=== PATIENT | male | born 1935 | race Caucasian/White ===

== ENCOUNTER 2016-10-28 09:18 | Emergency (ER) | payer MEDICARE, OTHER ==
--- NOTE | 2016-10-28 10:07 | ER Document Report ---
ED Fall - General Chief Complaint: Fall Stated Complaint: FALL/ HIP PAIN Mode of Arrival: Medic Information source: Patient, Emergency Med Personnel Cannot obtain history due to: Dementia Notes: MILDLY DEMENTED, POOR SHORT-TERM RECALL BUT FAIRLY GOOD HISTORIAN TRAVEL OUTSIDE OF THE [place] IN LAST 30 DAYS: No - HPI Occurred: This morning - Related data Allergies/Adverse Reactions: Penicillins Allergy (Verified 08/10/16 10:16) pseudoephedrine HCl [From Sudafed] Allergy (Verified 08/10/16 10:16) sulfadiazine [Sulfadiazine] Allergy (Verified 08/10/16 10:16) Past Medical History - General Information source: Transfer Record, Emergency Med Personnel Cannot obtain history due to: Dementia - Social History Smoking Status: Unknown if Ever Smoked Frequency of alcohol use: None Drug Abuse: None [facility] Family History: None Patient has suicidal ideation: No Patient has homicidal ideation: No - Past Medical History Cardiac Medical History: Reports: Hx Heart Attack - 2008, Hx Hypertension - medicated Pulmonary Medical History: Denies: Hx Asthma Neurological Medical History: Denies: Hx Cerebrovascular Accident, Hx Seizures Renal/ Medical History: Reports: Hx Benign Prostatic Hyperplasia GI Medical History: Denies: Hx Hepatitis, Hx Hiatal Hernia, Hx Ulcer Psychiatric Medical History: Reports: Hx Dementia Infectious Medical History: Denies: Hx Hepatitis Past Surgical History: Reports: Hx Cholecystectomy. Denies: Hx Open Heart Surgery, Hx Pacemaker - Immunizations Hx Diphtheria, Pertussis, Tetanus Vaccination: No Hx Pneumococcal Vaccination: 06/02/13 Review of Systems - Review of Systems Constitutional: No symptoms reported EENT: No symptoms reported Cardiovascular: No symptoms reported Respiratory: No symptoms reported Gastrointestinal: No symptoms reported Genitourinary: No symptoms reported Musculoskeletal: See HPI Skin: No symptoms reported Neurological/Psychological: No symptoms reported. denies: Headaches Physical Exam - Vital signs Vitals: Temp Pulse Resp BP Pulse Ox 98.1 F 47 L 16 128/52 H 99 10/28/16 09:30 10/28/16 09:30 10/28/16 09:30 10/28/16 09:30 10/28/16 09:30 Interpretation: Hypotensive, Bradycardic. No: Tachypneic, Febrile - General General appearance: Appears well, Alert In distress: None - HEENT Head: Normocephalic Eyes: Normal Conjunctiva: Normal Ears: Normal Nasal: Normal Mouth/Lips: Normal Mucous membranes: Normal Pharynx: Normal Neck: Normal, Supple - Respiratory Respiratory status: No respiratory distress Breath sounds: Normal - Cardiovascular Rhythm: Regular Heart sounds: Normal auscultation Murmur: No - Abdominal Inspection: Normal Distension: No distension Bowel sounds: Normal Tenderness: Tender - MILD, RLQ - Back Back: Normal - Extremities General upper extremity: Normal inspection General lower extremity: Normal inspection Hip: Tender - SLIGHT, OVER R. GR. TROCH., Other - NO PAIN WITH LOAD-BEARING. Notes: PELVIS STABLE TO A-P AND LATERAL STRESS. - Neurological Neuro grossly intact: Yes Cognition: Normal Orientation: Disoriented to time Motor strength normal: LUE, RUE, LLE, RLE Sensory: Normal - Psychological Associated symptoms: Confused - Skin Skin Temperature: Warm Skin Moisture: Dry Skin Color: Normal Skin Turgor: Elastic Skin irregularity: other - SEVERAL DOZEN CRUSTED LESIONS RESEMBLING NEURODERMATITIS, WIDESPREAD. Course - Vital Signs Vital signs: Temp Pulse Resp BP Pulse Ox 98.1 F 47 L 16 128/52 H 99 10/28/16 09:30 10/28/16 09:30 10/28/16 09:30 10/28/16 09:30 10/28/16 09:30 - Laboratory Result Diagrams: 10/28/16 11:05 10/28/16 11:05 Laboratory results interpreted by me: 10/28/16 10/28/16 11:05 11:05 RBC 3.40 L Hgb 9.4 L Hct 29.8 L MCHC 31.5 L RDW 16.3 H Eosinophils % 6.5 H Carbon Dioxide 33 H Albumin 3.0 L Discharge - Discharge Clinical Impression: Contusion of hip, right Qualifiers: Encounter type: initial encounter Qualified Code(s): S70.01XA - Contusion of right hip, initial encounter Dementia Qualifiers: Dementia type: Alzheimer's disease Alzheimer's disease onset: unspecified onset Dementia behavioral disturbance: without behavioral disturbance Qualified Code(s): G30.9 - Alzheimer's disease, unspecified; F02.80 - Dementia in other diseases classified elsewhere without behavioral disturbance Disposition: HOME, SELF-CARE
[2016-10-28 11:23] LABS: ABSOLUTE EOSINOPHILS # (AUTO) 0.3 10^3/uL (0.0-0.6); ABSOLUTE LYMPHOCYTES (AUTO) 0.9 10^3/uL (0.5-4.7); ABSOLUTE MONOCYTES (AUTO) 0.3 10^3/uL (0.1-1.4); ABSOLUTE NEUT (AUTO) 2.8 10^3/uL (1.7-8.2); BASOPHILS % (AUTO) 0.3 % (0-2); EOSINOPHILS % (AUTO) 6.5 % (0-6); HEMATOCRIT 29.8 % (37.9-51.0); HEMOGLOBIN 9.4 g/dL (13.5-17.0); HGB HCT DIFFERENCE -1.6; LYMPHOCYTES % (AUTO) 20.4 % (13-45); MEAN CORPUSCULAR HEMOGLOBIN 27.6 pg (27.0-33.4); MEAN CORPUSCULAR HGB CONC 31.5 g/dL (32.0-36.0); MEAN CORPUSCULAR VOLUME 88 fl (80-97); MONOCYTES % (AUTO) 7.2 % (3-13); RED CELL DISTRIBUTION WIDTH 16.3 % (11.5-14.0); SEGMENTED NEUTROPHILS % (AUTO) 65.6 % (42-78); WHITE BLOOD COUNT 4.3 10^3/uL (4.0-10.5)
[2016-10-28 11:46] LABS: ALANINE AMINOTRANSFERASE 26 U/L (21-72); ALKALINE PHOSPHATASE 81 U/L (38-126); ANION GAP 9 (5-19); ASPARTATE AMINO TRANSFERASE 28 U/L (17-59); BILIRUBIN,TOTAL 0.4 mg/dL (0.2-1.3); BLOOD UREA NITROGEN 18 mg/dL (7-20); CALCIUM 8.5 mg/dL (8.4-10.2); CARBON DIOXIDE 33 mmol/L (22-30); CHLORIDE 102 mmol/L (98-107); CREATININE RESULT 0.78 mg/dL (0.52-1.25); GLUCOSE 88 mg/dL (75-110); POTASSIUM 3.7 mmol/L (3.6-5.0); SODIUM 143.5 mmol/L (137-145); TOTAL PROTEIN 6.8 g/dL (6.3-8.2)
[2016-10-28 18:22] VITALS: BP 127/54
== END 2016-10-28 18:07 | disposition home or self-care (01) ==
LOC: ER 09:18
DX: S70.01XA Contusion of right hip, initial encounter (principal); G30.9 Alzheimer's disease, unspecified; Z90.49 Acquired absence of other specified parts of digestive tract; W19.XXXA Unspecified fall, initial encounter; I10 Essential (primary) hypertension; I25.2 Old myocardial infarction; Z88.0 Allergy status to penicillin; R10.31 Right lower quadrant pain
CPT/HCPCS: 36415; 80053; 85025; 99284

== ENCOUNTER 2016-11-24 10:51 | Emergency (ER) | payer MEDICARE, OTHER ==
[2016-11-24 11:55] VITALS: BP 127/59
[2016-11-24 12:00] LABS: ABSOLUTE EOSINOPHILS # (AUTO) 0.3 10^3/uL (0.0-0.6); ABSOLUTE LYMPHOCYTES (AUTO) 0.9 10^3/uL (0.5-4.7); ABSOLUTE MONOCYTES (AUTO) 0.3 10^3/uL (0.1-1.4); ABSOLUTE NEUT (AUTO) 2.1 10^3/uL (1.7-8.2); BASOPHILS % (AUTO) 0.4 % (0-2); EOSINOPHILS % (AUTO) 8.8 % (0-6); HEMATOCRIT 27.5 % (37.9-51.0); HEMOGLOBIN 8.9 g/dL (13.5-17.0); HGB HCT DIFFERENCE -0.8; LYMPHOCYTES % (AUTO) 25.9 % (13-45); MEAN CORPUSCULAR HGB CONC 32.3 g/dL (32.0-36.0); MEAN CORPUSCULAR VOLUME 87 fl (80-97); RED BLOOD COUNT 3.17 10^6/uL (4.35-5.55); RED CELL DISTRIBUTION WIDTH 16.4 % (11.5-14.0); SEGMENTED NEUTROPHILS % (AUTO) 56.9 % (42-78); WHITE BLOOD COUNT 3.6 10^3/uL (4.0-10.5)
[2016-11-24 13:09] LABS: ALANINE AMINOTRANSFERASE 32 U/L (21-72); ALBUMIN 2.9 g/dL (3.5-5.0); ALKALINE PHOSPHATASE 80 U/L (38-126); ANION GAP 8 (5-19); ASPARTATE AMINO TRANSFERASE 33 U/L (17-59); BILIRUBIN,TOTAL 0.4 mg/dL (0.2-1.3); BLOOD UREA NITROGEN 24 mg/dL (7-20); CALCIUM 8.8 mg/dL (8.4-10.2); CARBON DIOXIDE 31 mmol/L (22-30); CHLORIDE 107 mmol/L (98-107); CREATININE RESULT 0.92 mg/dL (0.52-1.25); GLUCOSE 92 mg/dL (75-110); LIPASE 398.4 U/L (23-300); POTASSIUM 4.3 mmol/L (3.6-5.0); SODIUM 145.8 mmol/L (137-145); TOTAL PROTEIN 6.9 g/dL (6.3-8.2)
--- NOTE | 2016-11-24 13:33 | ER Document Report ---
ED General - General Chief Complaint: Abdominal Pain Stated Complaint: ABDOMINAL PAIN TRAVEL OUTSIDE OF THE [place] IN LAST 30 DAYS: No - HPI Patient complains to provider of: abdominal pain Notes: Patient with a history of dementia coming in for evaluation of abdominal pain. 5 evaluate the patient patient states his abdominal pains of lower abdomen. Otherwise patient is unable to give any further history hernia further information. Patient does point to a right inguinal hernia when asked about location of pain. No other information is provided - Related Data Allergies/Adverse Reactions: Penicillins Allergy (Verified 08/10/16 10:16) pseudoephedrine HCl [From Sudafed] Allergy (Verified 08/10/16 10:16) sulfadiazine [Sulfadiazine] Allergy (Verified 08/10/16 10:16) Past Medical History - Social History Smoking Status: Unknown if Ever Smoked Family History: None - Past Medical History Cardiac Medical History: Reports: Hx Heart Attack - 2008, Hx Hypercholesterolemia, Hx Hypertension - medicated Pulmonary Medical History: Denies: Hx Asthma Neurological Medical History: Denies: Hx Cerebrovascular Accident, Hx Seizures Renal/ Medical History: Reports: Hx Benign Prostatic Hyperplasia. Denies: Hx Peritoneal Dialysis GI Medical History: Denies: Hx Hepatitis, Hx Hiatal Hernia, Hx Ulcer Psychiatric Medical History: Reports: Hx Dementia Infectious Medical History: Denies: Hx Hepatitis Past Surgical History: Reports: Hx Cholecystectomy. Denies: Hx Open Heart Surgery, Hx Pacemaker - Immunizations Hx Diphtheria, Pertussis, Tetanus Vaccination: No Hx Pneumococcal Vaccination: 06/02/13 Review of Systems - Review of Systems -: Yes ROS unobtainable due to patient's medical condition - Dementia Physical Exam - Vital signs Vitals: Temp Pulse Resp BP Pulse Ox 97.6 F 45 L 18 127/59 H 98 11/24/16 10:55 11/24/16 10:55 11/24/16 10:55 11/24/16 10:55 11/24/16 10:55 Interpretation: Normal - General General appearance: Appears well, Alert - HEENT Head: Normocephalic, Atraumatic Eyes: Normal Pupils: PERRL - Respiratory Respiratory status: No respiratory distress Chest status: Nontender Breath sounds: Normal Chest palpation: Normal - Cardiovascular Rhythm: Regular Heart sounds: Normal auscultation Murmur: No - Abdominal Inspection: Normal Distension: No distension Bowel sounds: Normal Tenderness: Nontender Organomegaly: No organomegaly Notes: Patient with a reducible right inguinal hernia that was reduced here in the ER - Back Back: Normal, Nontender - Extremities General upper extremity: Normal inspection, Nontender, Normal color, Normal ROM , Normal temperature General lower extremity: Normal inspection, Nontender, Normal color, Normal ROM , Normal temperature, Normal weight bearing. No: Tom's sign - Neurological Neuro grossly intact: Yes Cognition: Normal Orientation: AAOx4 [place] Coma Scale Eye Opening: Spontaneous [place] Coma Scale Verbal: Oriented [place] Coma Scale Motor: Obeys Commands [place] Coma Scale Total: 15 Speech: Normal Motor strength normal: LUE, RUE, LLE, RLE Sensory: Normal - Psychological Associated symptoms: Normal affect, Normal mood - Skin Skin Temperature: Warm Skin Moisture: Dry Skin Color: Normal Course - Re-evaluation Re-evalutation: 11/24/16 15:08 No signs of a long no white count and no signs of lactic acidosis. Patient will be discharged back to the senior living instructions follow-up with surgery for evaluation of the hernia - Vital Signs Vital signs: Temp Pulse Resp BP Pulse Ox 97.6 F 45 L 18 127/59 H 98 11/24/16 10:55 11/24/16 10:55 11/24/16 10:55 11/24/16 10:55 11/24/16 10:55 - Laboratory Result Diagrams: 11/24/16 11:07 11/24/16 12:25 Laboratory results interpreted by me: 11/24/16 11/24/16 11/24/16 11:07 12:25 12:25 WBC 3.6 L RBC 3.17 L Hgb 8.9 L Hct 27.5 L RDW 16.4 H Plt Count 146 L Eosinophils % 8.8 H Sodium 145.8 H Carbon Dioxide 31 H BUN 24 H Lactic Acid 0.6 L Albumin 2.9 L Lipase 398.4 H Discharge - Discharge Clinical Impression: Right inguinal hernia Condition: Good Disposition: HOME, SELF-CARE Instructions: Abdominal Pain ([facility]), Hernia ([facility]) Additional Instructions: Patient's lab work shows no signs of infection. The patient on examination does have a right inguinal hernia that is easily reducible. This is to be monitored at the hernia does pop out again apply gentle pressure to reduce it. If the hernia becomes unreducible patient will need to return to the ER for further evaluation. At this time no emergent criteria. I would recommend that the patient sees PCP and possibly follow-up with the surgeon provided. Please make sure the patient is on a stool softener to allow for easy bowel movements. Increased straining or lifting up heavy objects will exacerbate the hernia Prescriptions: Docusate Sodium [Colace 100 mg Capsule] 100 mg PO DAILY #30 capsule Referrals: ISH SONG PA-C [Primary Care Provider] - Follow up as needed JOE CASTRO MD [ACTIVE STAFF] - Follow up as needed
== END 2016-11-24 16:20 | disposition home or self-care (01) ==
LOC: ER 10:51
DX: K40.90 Unilateral inguinal hernia, without obstruction or gangrene, not specified as recurrent (principal); R10.9 Unspecified abdominal pain; E78.00 Pure hypercholesterolemia, unspecified; I10 Essential (primary) hypertension; Z88.0 Allergy status to penicillin; Z90.49 Acquired absence of other specified parts of digestive tract; I25.2 Old myocardial infarction
CPT/HCPCS: 36415; 80053; 83605; 83690; 85025; 99285

== ENCOUNTER 2017-01-30 10:20 | Emergency (ER) | payer MEDICARE, OTHER ==
--- NOTE | 2017-01-30 10:58 | ER Document Report ---
ED GI/ - General Mode of Arrival: Medic Information source: Patient, Emergency Med Personnel TRAVEL OUTSIDE OF THE [place] IN LAST 30 DAYS: No - HPI Patient complains to provider of: Abdominal pain Onset: Yesterday Associated symptoms: Other - See notes above <CRISTINA LOMBARDO - Last Filed: 01/30/17 19:58> <MARYAGMOE - Last Filed: 01/30/17 20:23> - General Chief Complaint: Abdominal Pain Stated Complaint: ABDOMINAL PAIN Notes: 82-year-old male with history of dementia was sent to the ED via EMS from [facility] where he complained of abdominal pain. According to the nurse the patient was found by [facility] staff doubled over in pain, however when EMS arrived, the patient was in no apparent distress. Upon examination, the patient states that he is unsure why he is here. He reports that "I don't know what the heck is going on." When asked where his abdominal pain is localized the patient points to his left thigh initially and then to his right thigh. A comprehensive history of present illness is unobtainable secondary to the patient's confusion which is likely due to his dementia. Patient's primary care provider is Dr. Santoyo. (CRISTINA LOMBARDO) - Related Data Allergies/Adverse Reactions: Penicillins Allergy (Verified 08/10/16 10:16) pseudoephedrine HCl [From Sudafed] Allergy (Verified 08/10/16 10:16) sulfadiazine [Sulfadiazine] Allergy (Verified 08/10/16 10:16) Past Medical History - General Information source: Patient - Social History Smoking Status: Former Smoker Chew tobacco use (# tins/day): Yes Frequency of alcohol use: Occasional Drug Abuse: None Family History: None - Past Medical History Cardiac Medical History: Reports: Hx Heart Attack - 2009, Hx Hypercholesterolemia, Hx Hypertension - medicated Pulmonary Medical History: Denies: Hx Asthma Neurological Medical History: Denies: Hx Cerebrovascular Accident, Hx Seizures Renal/ Medical History: Reports: Hx Benign Prostatic Hyperplasia. Denies: Hx Peritoneal Dialysis GI Medical History: Denies: Hx Hepatitis, Hx Hiatal Hernia, Hx Ulcer Psychiatric Medical History: Reports: Hx Dementia Infectious Medical History: Denies: Hx Hepatitis Past Surgical History: Reports: Hx Cholecystectomy. Denies: Hx Open Heart Surgery, Hx Pacemaker - Immunizations Hx Diphtheria, Pertussis, Tetanus Vaccination: No Hx Pneumococcal Vaccination: 06/02/13 <CRISTINA LOMBARDO - Last Filed: 01/30/17 19:58> Review of Systems - Review of Systems Gastrointestinal: See HPI, Abdominal pain <GRUPOCRISTINA - Last Filed: 01/30/17 19:58> <MOE FUENTES - Last Filed: 01/30/17 20:23> - Review of Systems Notes: Comprehensive ROS is unobtainable secondary to the patient's status. (CRISTINA LOMBARDO) Physical Exam <CRISTINA LOMBARDO - Last Filed: 01/30/17 19:58> <MOE FUENTES - Last Filed: 01/30/17 20:23> - Vital signs Vitals: Resp 18 01/30/17 10:22 Temp Pulse Resp BP Pulse Ox 98.7 F 80 20 132/68 H 96 01/30/17 19:09 01/30/17 19:09 01/30/17 19:09 01/30/17 19:09 01/30/17 19:09 Intake & Output 01/29/17 01/30/17 01/31/17 06:59 06:59 06:59 Weight 70.307 kg (CRISTINA LOMBARDO) - Notes Notes: GENERAL: Alert, interacts well. No acute distress. HEAD: Normocephalic, atraumatic. EYES: Pupils equal, round, and reactive to light. Extraocular movements intact. ENT: Oral mucosa moist, tongue midline. NECK: Full range of motion. Supple. Trachea midline. LUNGS: Clear to auscultation bilaterally, no wheezes, rales, or rhonchi. No respiratory distress. HEART: Regular rate and rhythm. No murmurs, gallops, or rubs. ABDOMEN: Soft. Non-distended. Bowel sounds present in all 4 quadrants. Diffuse tenderness to palpation which is worse to the right lower quadrant. Moderate guarding. EXTREMITIES: Moves all 4 extremities spontaneously. Trace pitting edema to the bilateral feet. Posterior tibialis and dorsalis pedis pulses 2/4 bilaterally. No cyanosis. Patient has a tracking bracelet to his right ankle. NEUROLOGICAL: Alert. Normal speech. Patient was confused on exam consistent with baseline dementia and thus a comprehensive HPI was unobtainable. PSYCH: Normal affect, normal mood. SKIN: Warm, dry, normal turgor. Multiple excoriations noted. Patient is scratching on exam. Thickening and cracking of the skin to the bilateral hands. (CRISTINA LOMBARDO) Course - Laboratory Result Diagrams: 01/30/17 11:02 01/30/17 11:02 - EKG Interpretation by Me EKG shows normal: Sinus rhythm. abnormal: ST-T Waves - No T-wave elevation or depression. Leads V1 through V5 show T wave inversion. These inversions are new in leads V3 through V5, but appeared unchanged in V1 through V2. Rate: Normal - 60 bpm Heart block present: 1st Degree - First degree AV block noted. When compared to previous EKG there are: Changes noted - New T-wave inversions in leads V3 through V5. <CRISTINA LOMBARDO - Last Filed: 01/30/17 19:58> - Laboratory Result Diagrams: 01/30/17 11:02 01/30/17 11:02 <MOE FUENTES - Last Filed: 01/30/17 20:23> - Re-evaluation Re-evalutation: 01/30/17 17:52 CBC shows low white count of 3.0, anemia with hemoglobin 9.7, platelets normal, coags normal, chemistries grossly unremarkable, urinalysis shows small blood, no signs of infection, CT scan of the abdomen pelvis shows possible bleeding near the aorta however this was repeated several hours later after discussion with the radiologist and there is no sign of change in the possible bleeding, this does not appear to represent any acute bleeding, patient has had no decrease in blood pressure and is in absolutely no pain whatsoever since arriving in the emergency department. At this time I do not know what the etiology of his pain is but it does not appear to be coming from an acute intra- abdominal process. He did have a very large bowel movement while here, this could possibly have accounted for the patient's pain at the custodial however I am not certain. At this time the patient appears stable and will be discharged back to the custodial. They are requested to follow up as an outpatient with primary care physician as well as to return for any returning pain. (MOE FUENTES) - Vital Signs Vital signs: Temp Pulse Resp BP Pulse Ox 98.0 F 63 16 130/50 H 97 01/30/17 20:13 01/30/17 20:13 01/30/17 20:13 01/30/17 20:13 01/30/17 20:13 - Laboratory Laboratory results interpreted by me: 01/30/17 01/30/17 01/30/17 11:02 11:02 11:15 WBC 3.0 L RBC 3.59 L Hgb 9.7 L Hct 30.3 L RDW 16.3 H Eosinophils % 7.8 H Sodium 145.9 H Carbon Dioxide 32 H Albumin 3.4 L Urine Blood SMALL H Discharge <CRISTINA LOMBARDO - Last Filed: 01/30/17 19:58> <MOE FUENTES - Last Filed: 01/30/17 20:23> - Discharge Clinical Impression: Abdominal pain of unknown etiology Dementia Qualifiers: Dementia type: unspecified type Dementia behavioral disturbance: without behavioral disturbance Qualified Code(s): F03.90 - Unspecified dementia without behavioral disturbance Condition: Stable Disposition: HOME-SNF (ED ONLY) Additional Instructions: Today we did not find any cause for the patient's abdominal pain. The patient had no abdominal pain in the emergency department either. Initial CAT scan showed possible bleeding from around the stent in his aorta however when we repeated the CAT scan there was no evidence that this is acute bleeding, no intervention needs to happen today. It is very important that you have him follow-up with his primary care physician as an outpatient within the next 3-5 days and that you have him return to the emergency department department immediately should his pain return. Referrals: ISH SONG PA-C [Primary Care Provider] - Follow up in 3-5 days Scribe Attestation: 01/30/17 20:22 I personally performed the services described in the documentation, reviewed and edited the documentation which was dictated to the scribe in my presence, and it accurately records my words and actions. (MOE FUENTES) Scribe Documentation - Scribe Written by Yunior:: Yunior Merrill, 01/30/2017 1349 acting as scribe for :: Carissa <CRISTINA LOMBARDO - Last Filed: 01/30/17 19:58>
[2017-01-30 11:19] LABS: ABSOLUTE EOSINOPHILS # (AUTO) 0.2 10^3/uL (0.0-0.6); ABSOLUTE LYMPHOCYTES (AUTO) 0.6 10^3/uL (0.5-4.7); ABSOLUTE MONOCYTES (AUTO) 0.2 10^3/uL (0.1-1.4); ABSOLUTE NEUT (AUTO) 1.9 10^3/uL (1.7-8.2); BASOPHILS % (AUTO) 0.3 % (0-2); EOSINOPHILS % (AUTO) 7.8 % (0-6); HEMATOCRIT 30.3 % (37.9-51.0); HEMOGLOBIN 9.7 g/dL (13.5-17.0); HGB HCT DIFFERENCE -1.2; LYMPHOCYTES % (AUTO) 21.3 % (13-45); MEAN CORPUSCULAR HEMOGLOBIN 27.1 pg (27.0-33.4); MEAN CORPUSCULAR HGB CONC 32.1 g/dL (32.0-36.0); MEAN CORPUSCULAR VOLUME 84 fl (80-97); MONOCYTES % (AUTO) 7.5 % (3-13); RED BLOOD COUNT 3.59 10^6/uL (4.35-5.55); RED CELL DISTRIBUTION WIDTH 16.3 % (11.5-14.0); SEGMENTED NEUTROPHILS % (AUTO) 63.1 % (42-78)
[2017-01-30 11:26] LABS: PROTHROMBIN TIME 13.7 SEC (11.4-15.4)
[2017-01-30 11:48] LABS: ALANINE AMINOTRANSFERASE 23 U/L (21-72); ALBUMIN 3.4 g/dL (3.5-5.0); ALKALINE PHOSPHATASE 91 U/L (38-126); ANION GAP 11 (5-19); ASPARTATE AMINO TRANSFERASE 23 U/L (17-59); BILIRUBIN,DIRECT 0.3 mg/dL (0.0-0.4); BILIRUBIN,TOTAL 0.6 mg/dL (0.2-1.3); BLOOD UREA NITROGEN 18 mg/dL (7-20); CARBON DIOXIDE 32 mmol/L (22-30); CHLORIDE 103 mmol/L (98-107); CREATININE RESULT 0.86 mg/dL (0.52-1.25); GLUCOSE 102 mg/dL (75-110); POTASSIUM 3.9 mmol/L (3.6-5.0); SODIUM 145.9 mmol/L (137-145); TOTAL PROTEIN 7.7 g/dL (6.3-8.2)
[2017-01-30 12:04] LABS: APPEARANCE,URINE CLEAR; BILIRUBIN,URINE NEGATIVE (NEGATIVE); GLUCOSE, URINE NEGATIVE (NEGATIVE); KETONES,URINE NEGATIVE (NEGATIVE); LEUKOCYTE ESTERASE,URINE NEGATIVE (NEGATIVE); NITRITE,URINE NEGATIVE (NEGATIVE); PROTEIN,URINE NEGATIVE (NEGATIVE); URINE SPECIFIC GRAVITY 1.015; UROBILINOGEN,URINE NEGATIVE mg/dL (<2.0)
--- NOTE | 2017-01-30 13:35 | EKG REPORT ---
SEVERITY:- ABNORMAL ECG - SINUS RHYTHM ABNORMAL T, CONSIDER ISCHEMIA, ANT-LAT LEADS : Confirmed by: Josafat Barbosa MD 30-Jan-2017 13:35:14
[2017-01-30 20:15] VITALS: BP 130/50
== END 2017-01-30 20:13 ==
LOC: ER 10:20
DX: R10.9 Unspecified abdominal pain (principal); R10.817 Generalized abdominal tenderness; F03.90 Unspecified dementia, unspecified severity, without behavioral disturbance, psychotic disturbance, mood disturbance, and anxiety; R60.0 Localized edema; D64.9 Anemia, unspecified; I44.0 Atrioventricular block, first degree; I25.2 Old myocardial infarction; I10 Essential (primary) hypertension; Z90.49 Acquired absence of other specified parts of digestive tract; Z88.0 Allergy status to penicillin; Z88.8 Allergy status to other drugs, medicaments and biological substances; Z72.0 Tobacco use
CPT/HCPCS: 36415; 51701; 74176; 74177; 80053; 81001; 85025; 85610; 87040; 93005; 93010; 99285

== ENCOUNTER 2017-02-16 18:28 | Emergency (ER) | payer MEDICARE, OTHER ==
--- NOTE | 2017-02-16 20:00 | ER Document Report ---
ED Hip Pain/Injury - General Chief Complaint: Hip Pain Stated Complaint: HIP PAIN Time Seen by Provider: 02/16/17 19:50 Notes: Patient is an 82-year-old male that [id number] for chief complaint of fall injury and pain to the right hip. No other injuries reported. When asked where he hurts patient states he hurts in his left hip and points to his left hip. He denies any other areas of pain. Patient is on Plavix. Patient has a DO NOT RESUSCITATE form with him in his chart. Patient is confused but this is reportedly his baseline per EMS. TRAVEL OUTSIDE OF THE [place] IN LAST 30 DAYS: No - Related Data Allergies/Adverse Reactions: Penicillins Allergy (Verified 08/10/16 10:16) pseudoephedrine HCl [From Sudafed] Allergy (Verified 08/10/16 10:16) sulfadiazine [Sulfadiazine] Allergy (Verified 08/10/16 10:16) Past Medical History - General Information source: Patient - Social History Smoking Status: Never Smoker Chew tobacco use (# tins/day): No Frequency of alcohol use: None Drug Abuse: None Lives with: Family Family History: None - Past Medical History Cardiac Medical History: Reports: Hx Heart Attack - 2008, Hx Hypercholesterolemia, Hx Hypertension - medicated Pulmonary Medical History: Denies: Hx Asthma Neurological Medical History: Denies: Hx Cerebrovascular Accident, Hx Seizures Renal/ Medical History: Reports: Hx Benign Prostatic Hyperplasia. Denies: Hx Peritoneal Dialysis GI Medical History: Denies: Hx Hepatitis, Hx Hiatal Hernia, Hx Ulcer Psychiatric Medical History: Reports: Hx Dementia Infectious Medical History: Denies: Hx Hepatitis Past Surgical History: Reports: Hx Cholecystectomy. Denies: Hx Open Heart Surgery, Hx Pacemaker - Immunizations Hx Diphtheria, Pertussis, Tetanus Vaccination: No Hx Pneumococcal Vaccination: 06/02/13 Review of Systems - Review of Systems Constitutional: No symptoms reported EENT: No symptoms reported Cardiovascular: No symptoms reported Respiratory: No symptoms reported Gastrointestinal: No symptoms reported Genitourinary: No symptoms reported Male Genitourinary: No symptoms reported Musculoskeletal: See HPI Skin: No symptoms reported Hematologic/Lymphatic: No symptoms reported Neurological/Psychological: No symptoms reported Physical Exam - Vital signs Vitals: Temp Pulse Resp BP Pulse Ox 98.2 F 109 H 20 134/77 H 99 02/16/17 18:42 05/18/17 18:42 02/16/17 18:42 02/16/17 18:42 02/16/17 18:42 Interpretation: Normal - General General appearance: Appears well, Alert In distress: None - patient appears calm, resting in the bed, responsive, smiles when engaging in conversation - HEENT Head: Normocephalic, Atraumatic Eyes: Normal Conjunctiva: Normal Extraocular movements intact: Yes Eyelashes: Normal Pupils: PERRL Mouth/Lips: Normal Mucous membranes: Normal Pharynx: Normal Neck: Normal - Respiratory Respiratory status: No respiratory distress Chest status: Nontender Breath sounds: Normal. No: Decreased air movement, Wheezing Chest palpation: Normal - Cardiovascular Rhythm: Regular. No: Tachycardia Heart sounds: Normal auscultation, S1 appreciated, S2 appreciated Murmur: No - Abdominal Inspection: Normal Distension: No distension Bowel sounds: Normal Tenderness: Nontender. No: Tender, Guarding Organomegaly: No organomegaly - Back Back: Normal, Nontender. No: Tender, Vertebra tenderness - Extremities General upper extremity: Normal inspection, Nontender, Normal color, Normal ROM , Normal temperature General lower extremity: Other - patient states he has pain with palpation over both hips, although no pain reaction noted, bilateral LE exam is unremarkable with no signs of injury, normal distal N/V exam - Neurological Neuro grossly intact: Yes Cognition: Normal Orientation: AAOx4 [place] Coma Scale Eye Opening: Spontaneous Abhishek Coma Scale Verbal: Oriented Abhishek Coma Scale Motor: Obeys Commands [place] Coma Scale Total: 15 Speech: Normal Motor strength normal: LUE, RUE, LLE, RLE Sensory: Normal - Psychological Associated symptoms: Normal affect, Normal mood - Skin Skin Temperature: Warm Skin Moisture: Dry Skin Color: Normal Course - Re-evaluation Re-evalutation: Imaging of the hips/pelvis with no acute abnormality. On reevaluation patient has no complaints. Efrain physical exam. No tachycardia on my exam, on reevaluation of vital signs tachycardia resolved. [facility] with primary care follow-up - Vital Signs Vital signs: Temp Pulse Resp BP Pulse Ox 98.2 F 56 L 18 142/69 H 98 02/16/17 18:42 02/16/17 22:59 02/16/17 22:59 02/16/17 22:59 02/16/17 22:59 Discharge - Discharge Clinical Impression: Fall Qualifiers: Encounter type: initial encounter Qualified Code(s): W19.XXXA - Unspecified fall, initial encounter Hip pain Qualifiers: Laterality: bilateral Qualified Code(s): M25.551 - Pain in right hip Condition: Stable Disposition: HOME, SELF-CARE Additional Instructions: Both hips imaged and no abnormalities noted. No other abnormalities seen on evaluation. Follow up with primary care. Return to the ED for any concerning symptoms.
[2017-02-16 23:00] VITALS: BP 142/69
== END 2017-02-17 | disposition home or self-care (01) ==
LOC: ER 18:28
DX: M25.551 Pain in right hip (principal); M25.552 Pain in left hip; W19.XXXA Unspecified fall, initial encounter; Y92.129 Unspecified place in nursing home as the place of occurrence of the external cause; I25.2 Old myocardial infarction; I10 Essential (primary) hypertension; Z66 Do not resuscitate; Z88.0 Allergy status to penicillin; Z88.8 Allergy status to other drugs, medicaments and biological substances; Z88.2 Allergy status to sulfonamides
CPT/HCPCS: 73522; 99284

== ENCOUNTER 2017-04-12 03:09 | Emergency (ER) | payer MEDICARE, OTHER ==
[2017-04-12] MEDS ORDERED: LIDOCAINE 0.5%/EPINEPHRINE INJ 50 ML VIAL INJ ONE (03:15)
--- NOTE | 2017-04-12 03:22 | ER Document Report ---
ED Fall - General Chief Complaint: Fall Stated Complaint: FALL/HEAD LACERATION Time Seen by Provider: 04/12/17 03:15 Notes: Patient is an 82-year-old male who comes emergency department from [facility] by EMS for chief complaint of fall, fall was unwitnessed , patient was found sitting on the floor with a laceration to his left posterior scalp and bleeding. Patient is on both Plavix and aspirin. Patient has dementia, patient reportedly at patient's baseline according to custodial staff before coming to the emergency department. No other complaints reported. TRAVEL OUTSIDE OF THE [place] IN LAST 30 DAYS: No - Related data Allergies/Adverse Reactions: Penicillins Allergy (Verified 08/10/16 10:16) pseudoephedrine HCl [From Sudafed] Allergy (Verified 08/10/16 10:16) sulfadiazine [Sulfadiazine] Allergy (Verified 08/10/16 10:16) Past Medical History - General Information source: Patient - Social History Smoking Status: Never Smoker Frequency of alcohol use: None Drug Abuse: None Lives with: [facility] Family History: None - Past Medical History Cardiac Medical History: Reports: Hx Heart Attack - 2008, Hx Hypercholesterolemia, Hx Hypertension - medicated Pulmonary Medical History: Denies: Hx Asthma Neurological Medical History: Denies: Hx Cerebrovascular Accident, Hx Seizures Renal/ Medical History: Reports: Hx Benign Prostatic Hyperplasia. Denies: Hx Peritoneal Dialysis GI Medical History: Denies: Hx Hepatitis, Hx Hiatal Hernia, Hx Ulcer Psychiatric Medical History: Reports: Hx Dementia Infectious Medical History: Denies: Hx Hepatitis Past Surgical History: Reports: Hx Cholecystectomy. Denies: Hx Open Heart Surgery, Hx Pacemaker - Immunizations Hx Diphtheria, Pertussis, Tetanus Vaccination: No Hx Pneumococcal Vaccination: 06/02/13 Review of Systems - Review of Systems Constitutional: No symptoms reported EENT: No symptoms reported Cardiovascular: No symptoms reported Respiratory: No symptoms reported Gastrointestinal: No symptoms reported Genitourinary: No symptoms reported Male Genitourinary: No symptoms reported Musculoskeletal: See HPI Skin: See HPI Hematologic/Lymphatic: No symptoms reported Neurological/Psychological: See HPI Physical Exam - Vital signs Vitals: Temp Pulse Resp BP Pulse Ox 98.0 F 46 L 18 125/58 L 100 04/12/17 03:33 04/12/17 03:33 04/12/17 03:33 04/12/17 03:33 04/12/17 03:33 Interpretation: Normal - General General appearance: Appears well In distress: None - HEENT Head: Normocephalic. No: Atraumatic - There is a 3 cm linear laceration over the left parieto-occipital scalp, currently bleeding, mild surrounding ecchymosis, otherwise no signs of trauma Eyes: Normal Pupils: PERRL - Respiratory Respiratory status: No respiratory distress Chest status: Nontender Breath sounds: Normal Chest palpation: Normal - Cardiovascular Rhythm: Regular, Bradycardia Heart sounds: Normal auscultation, S1 appreciated, S2 appreciated Murmur: No - Abdominal Inspection: Normal Distension: No distension Bowel sounds: Normal Tenderness: Nontender Organomegaly: No organomegaly - Back Back: Normal, Nontender - Extremities General upper extremity: Normal inspection, Nontender, Normal color, Normal ROM , Normal temperature General lower extremity: Normal inspection, Nontender, Normal color, Normal ROM , Normal temperature, Normal weight bearing. No: Tom's sign - Neurological Neuro grossly intact: Yes Cognition: Confused Orientation: Disoriented to time, Disoriented to events. 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 CAT scan of the head negative for any acute abnormalities. Wound repaired, head injury precautions given, patient will be discharged back to custodial facility Patient has bradycardia here, however review of records shows that this is baseline for patient - Vital Signs Vital signs: Temp Pulse Resp BP Pulse Ox 98.3 F 50 L 18 151/62 H 99 04/12/17 05:44 04/12/17 05:44 04/12/17 05:44 04/12/17 05:44 04/12/17 05:44 Procedures - Laceration/Wound Repair Left parieto-occipital Wound length (cm): 3 Wound's Depth, Shape: Linear Anesthetic type: 1% Lidocaine w/epi Volume Anesthetic (mLs): 6 Wound explored: Clean, No foreign body removed Wound Repaired With: Sutures Suture Size/Type: 4:0, Nylon Number of Sutures: 8 - running Layer Closure?: No Post-procedure wound care: Sterile dressing applied Post-procedure NV exam normal: Yes Complications: No Discharge - Discharge Clinical Impression: Scalp laceration Qualifiers: Encounter type: initial encounter Qualified Code(s): S01.01XA - Laceration without foreign body of scalp, initial encounter Fall Qualifiers: Encounter type: initial encounter Qualified Code(s): W19.XXXA - Unspecified fall, initial encounter Head injury Qualifiers: Encounter type: initial encounter Qualified Code(s): S09.90XA - Unspecified injury of head, initial encounter Condition: Stable Disposition: HOME, SELF-CARE Additional Instructions: Sutures need to come out in 5-7 days at a medical facility. Keep the sutures clean, clean with soap and water, dab dry. Please follow head injury precautions listed below. Emergency department for any concerning symptoms including signs of infection such as redness, discolored drainage, fever, etc. Head Injury Precautions At this point, there is no evidence that your head injury is serious. Observation is necessary, however. Take only clear liquids for the first few hours, unless told otherwise by the doctor. If no pain medication was prescribed, you may take acetaminophen according to the directions on the bottle. Do not take any medication that may alter your level of alertness (unless you've discussed it with the doctor first) . Limit activity for the first 24 hours. Bed rest is best. During the first 24 hours, check to see approximately every two to three hours that the patient is easily arousable, responds normally, and can perform common tasks such as walking without difficulty. Contact your doctor or go to the hospital if any of the following things occur: Persistent vomiting, difficulty in arousing the patient, worsening or continued headache, or failure to improve as expected. Head injuries can cause symptoms that persist for a few days or even a few weeks.
--- NOTE | 2017-04-12 04:04 | RADIOLOGY REPORT (SQ) ---
EXAM DESCRIPTION: CT HEAD WITHOUT COMPLETED DATE/TIME: 04/12/2017 3:41 am REASON FOR STUDY: head injury COMPARISON: CT head 07/25/2016, 06/04/2016. TECHNIQUE: Axial images acquired through the brain without intravenous contrast. Images reviewed wi th bone, brain and subdural windows. Images stored on PACS. All CT scanners at this facility use dose modulation, iterative reconstruction, and/or weight based d osing when appropriate to reduce radiation dose to as low as reasonably achievable (ALARA). [facility]: Dose Right [facility]: CareDose [facility]: Dose Right [facility]: Teradose 4D [facility]: Smart M[place]ridion RADIATION DOSE: Up-to-date CT equipment and radiation dose reduction techniques were employed. CTDIv ol: 55.2 mGy. DLP: 1084 mGy-cm.mGy. LIMITATIONS: None. FINDINGS: VENTRICLES: Prominent. CEREBRUM: No mass effect. No hemorrhage. No midline shift. Areas of low density in the white matte r most likely due to chronic micro-vascular ischemic change. No evidence for acute territorial infar ction. CEREBELLUM: No mass effect. No hemorrhage. No alteration of density. No evidence for acute infarct ion. EXTRAAXIAL SPACES: Age-related involutional change. No fluid collections. ORBITS AND GLOBE: Symmetr ical contour of the globes. CALVARIUM: No depressed fracture. PARANASAL SINUSES: No air-fluid level. SOFT TISSUES: No hematoma. IMPRESSION: No acute intracranial hemorrhage or depressed calvarial fracture. Chronic changes of at rophy and microvascular ischemia. TECHNICAL DOCUMENTATION: JOB ID: [id number] [facility] Quality ID # [id number]: Final reports with documentation of one or more dose reduction techniques (e.g., Au tomated exposure control, adjustment of the mA and/or kV according to patient size, use of iterative reconstruction technique) 2010 [employer]- All Rights Reserved
[2017-04-12 05:46] VITALS: BP 151/62
== END 2017-04-12 05:51 | disposition home or self-care (01) ==
LOC: ER 03:09
PROC: 0HQ0XZZ Repair Scalp Skin, External Approach (ICD-10-PCS; principal; 2017-04-12)
DX: S01.01XA Laceration without foreign body of scalp, initial encounter (principal); W19.XXXA Unspecified fall, initial encounter; Y92.129 Unspecified place in nursing home as the place of occurrence of the external cause; R00.1 Bradycardia, unspecified; I25.2 Old myocardial infarction; I10 Essential (primary) hypertension; F03.90 Unspecified dementia, unspecified severity, without behavioral disturbance, psychotic disturbance, mood disturbance, and anxiety; Z79.02 Long term (current) use of antithrombotics/antiplatelets; Z79.82 Long term (current) use of aspirin; Z88.0 Allergy status to penicillin; Z88.8 Allergy status to other drugs, medicaments and biological substances; Z88.1 Allergy status to other antibiotic agents
CPT/HCPCS: 12002; 99283; 70450; J3490

== ENCOUNTER 2017-05-17 16:39 | Emergency (ER) | payer MEDICARE, OTHER ==
--- NOTE | 2017-05-17 17:30 | ER Document Report ---
ED Fall - General Chief Complaint: Fall Stated Complaint: FALL;HEAD INJURY Time Seen by Provider: 05/17/17 16:46 Notes: The patient is an 82-year-old male, past medical history hypertension, CAD on Plavix, presents from the [facility] after a mechanical fall where he tripped on the carpet, fell and hit the back of his head and then forehead. He is complaining of posterior headache, neck pain and left shoulder pain. Patient denies LOC, chest pain, shortness of breath, numbness, tingling, blurry vision, ataxia, abdominal pain, nausea or vomiting. TRAVEL OUTSIDE OF THE [place] IN LAST 30 DAYS: No - Related data Allergies/Adverse Reactions: Penicillins Allergy (Verified 05/17/17 17:08) pseudoephedrine HCl [From Sudafed] Allergy (Verified 05/17/17 17:08) sulfadiazine [Sulfadiazine] Allergy (Verified 05/17/17 17:08) Home Medications: Current Home Medications Acetaminophen [Acetaminophen ER] 650 mg PO DAILY 05/17/17 [History] Hydroxyzine HCl [Atarax 25 mg Tablet] 1 tab PO QID PRN 05/17/17 [History] Lorazepam [Ativan 0.5 mg Tablet] 0.5 mg PO Q4 PRN 05/17/17 [History] Potassium Chloride [Kaon-Cl 20 Meq/15 ml Udcup] 20 meq PO DAILY 05/17/17 [ History] Triamcinolone Acetonide [Aristocort 0.1% Cream] 1 applic TOP BID 05/17/17 [ History] Past Medical History - General Information source: Patient - Social History Smoking Status: Unknown if Ever Smoked Family History: None - Past Medical History Cardiac Medical History: Reports: Hx Heart Attack - 2008, Hx Hypercholesterolemia, Hx Hypertension - medicated Pulmonary Medical History: Denies: Hx Asthma Neurological Medical History: Denies: Hx Cerebrovascular Accident, Hx Seizures Renal/ Medical History: Reports: Hx Benign Prostatic Hyperplasia. Denies: Hx Peritoneal Dialysis GI Medical History: Denies: Hx Hepatitis, Hx Hiatal Hernia, Hx Ulcer Psychiatric Medical History: Reports: Hx Dementia Infectious Medical History: Denies: Hx Hepatitis Past Surgical History: Reports: Hx Cholecystectomy. Denies: Hx Open Heart Surgery, Hx Pacemaker - Immunizations Hx Diphtheria, Pertussis, Tetanus Vaccination: No Hx Pneumococcal Vaccination: 06/02/13 Review of Systems - Review of Systems Notes: REVIEW OF SYSTEMS: CONSTITUTIONAL: -fevers, -chills EENT: -eye pain, -difficulty swallowing, -nasal congestion CARDIOVASCULAR:-chest pain, -syncope. RESPIRATORY: -cough, -SOB GASTROINTESTINAL: -abdominal pain, - nausea, -vomiting, -diarrhea GENITOURINARY: -dysuria, -hematuria MUSCULOSKELETAL: +left shoulder pain, -back pain, +neck pain SKIN: -rash or skin lesions. HEMATOLOGIC: -easy bruising or bleeding. LYMPHATIC: -swollen, enlarged glands. NEUROLOGICAL: -altered mental status or loss of consciousness, +headache, - neurologic symptoms PSYCHIATRIC: -anxiety, -depression. ALL OTHER SYSTEMS REVIEWED AND NEGATIVE. Physical Exam - Vital signs Vitals: Resp 12 05/17/17 16:40 - Notes Notes: PHYSICAL EXAMINATION: GENERAL: Well-appearing, well-nourished and in no acute distress. HEAD: Atraumatic, normocephalic. Tenderness over posterior skull. EYES: Pupils equal round and reactive to light, extraocular movements intact, sclera anicteric, conjunctiva are normal. ENT: nares patent, oropharynx clear without exudates. Moist mucous membranes. NECK: Midline C-spine tenderness, supple without lymphadenopathy, pt in C-collar LUNGS: Breath sounds clear to auscultation bilaterally and equal. No wheezes rales or rhonchi. HEART: Regular rate and rhythm without murmurs ABDOMEN: Soft, nontender, normoactive bowel sounds. No guarding, no rebound. No masses appreciated. EXTREMITIES: Left anterior shoulder tenderness. no pitting or edema. No cyanosis. NEUROLOGICAL: Cranial nerves grossly intact. Normal speech, normal gait. Normal sensory and motor exams. PSYCH: Normal mood, normal affect. SKIN: Warm, Dry, normal turgor, no rashes or lesions noted. Course - Re-evaluation Re-evalutation: Looking through old records, patient is usually bradycardic. His blood pressure is normal today. He is on atenolol from [facility] records, which should be stopped. Patient repeatedly confirms that this was a strictly mechanical fall and he did not have LOC. Spoke to Dr. Lopez, radiologist and she sees no acute fractures in the head, face or C-spine. Left shoulder x- ray does not show dislocation or fracture. Labs not indicated at this time due to the mechanical nature of the fall. - Vital Signs Vital signs: Temp Pulse Resp BP Pulse Ox 97.6 F 46 L 12 124/61 100 05/17/17 16:45 05/17/17 16:45 05/17/17 17:08 05/17/17 17:08 05/17/17 17:08 Discharge - Discharge Clinical Impression: Head injury Qualifiers: Encounter type: initial encounter Qualified Code(s): S09.90XA - Unspecified injury of head, initial encounter Fall Qualifiers: Encounter type: initial encounter Qualified Code(s): W19.XXXA - Unspecified fall, initial encounter Contusion of left shoulder Qualifiers: Encounter type: initial encounter Qualified Code(s): S40.012A - Contusion of left shoulder, initial encounter Condition: Stable Disposition: HOME, SELF-CARE Additional Instructions: Talk to your primary care physician about stopping your atenolol because your heart rate is slow. Contusion Your injury has resulted in a contusion -- a crushing of the deep tissues. No injury to important structures was detected during the physician's exam. Contusions vary in the amount of pain they cause, and in the length of time required for healing. Typically, the area will become bruised, and will remain painful to touch for two or three weeks. However, most patients are back to working and playing within a few days. After the initial period of rest and cold-packs, your symptoms (together with the doctor's recommendations) will determine how rapidly you can get back to full activity. Usually this means "do what feels okay, but don't do things that hurt." If re-examination was recommended, it's important to follow up as instructed. Call the doctor or return any time if pain increases, if swelling becomes severe, if you develop numbness or weakness in an injured extremity, or if any other alarming symptoms occur. Head Injury Your examination and CT Head shows no evidence of brain injury. You can therefore be safely observed at home. Give clear liquids only for the first eight hours. Acetaminophen or ibuprofen can safely be given for pain. Follow the directions on the bottle. Do not give any medication that may alter her/his level of alertness. Limit activity for the first 24 hours -- bed rest is advisable at first. Several times during the first 24 hours, check the patient to see if the pupils are equal in size to each other, that the patient is easily arousable, and responds normally. Contact your doctor or go to the hospital if any of the following things occur: Persistent or projectile vomiting, a seizure, confusion , unequal pupil size, difficulty in arousing the patient, worsening or continued headache, or failure to improve as expected.
--- NOTE | 2017-05-17 17:59 | EKG REPORT ---
SEVERITY:- ABNORMAL ECG - SINUS BRADYCARDIA ABNORMAL T, CONSIDER ISCHEMIA, ANT-LAT LEADS : Confirmed by: Josafat Barbosa MD 17-May-2017 17:58:58
[2017-05-17 18:29] VITALS: BP 128/56
--- NOTE | 2017-05-19 15:35 | RADIOLOGY REPORT (SQ) ---
EXAM DESCRIPTION: SHOULDER LEFT 2 OR MORE VIEWS COMPLETED DATE/TIME: 05/17/2017 5:42 pm REASON FOR STUDY: Fall injury pain COMPARISON: None TECHNIQUE: AP internal and external rotation views, Y-view of the left shoulder LIMITATIONS: None FINDINGS: Bones are osteoporotic. No glenohumeral joint dislocation or acromioclavicular joint widening. Mild AC joint bony spurring. No acute fracture of the left clavicle, scapula, proximal humerus, or left upper ribs. Left lung grossly clear. IMPRESSION: No acute changes.
--- NOTE | 2017-05-19 15:38 | RADIOLOGY REPORT (SQ) ---
EXAM DESCRIPTION: CT CERVICAL SPINE WITHOUT COMPLETED DATE/TIME: 05/17/2017 5:11 pm REASON FOR STUDY: Fall injury pain COMPARISON: 07/15/2016 TECHNIQUE: Non contrasted CT of the cervical spine was performed, reviewed at bone and soft tissue w indows with sagittal and coronal reconstructions. RADIATION DOSE: 16.5 mGy LIMITATIONS: None FINDINGS: Bones are osteopenic. No acute fracture. No malalignment. C2-3 level is and C3-4 disc levels are unremarkable. At C4-5, a large central disc herniation is present, causing high-grade central canal narrowing best shown on axial image 42. This is similar compared to 07/25/2016 CT exam. There is high-grade bilate ral C4-5 foraminal stenosis from bulky bony spurring. At C5-6, no posterior disc bulging is present. Mild bilateral foraminal narrowing from bony spurring . At C6-7, mild posterior disc bulge and bony spurring is present with mild central stenosis. High-gra de bilateral foraminal narrowing from bony spurring. At C7-T1 no central or foraminal stenosis is present. Soft tissue windows demonstrate old right carotid endarterectomy. No gross neck masses or adenopathy . Findings were discussed with Dr. Norris IMPRESSION: No acute changes. 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
--- NOTE | 2017-05-19 15:39 | RADIOLOGY REPORT (SQ) ---
EXAM DESCRIPTION: CT FACIAL AREA WITHOUT COMPLETED DATE/TIME: 05/17/2017 5:11 pm REASON FOR STUDY: Fall, injury, pain COMPARISON: CT brain same date TECHNIQUE: Noncontrast CT of the facial bones was performed, reviewed at bone and soft tissue window s with sagittal and coronal reconstructions. RADIATION DOSE: 30.4 mGy LIMITATIONS: None FINDINGS: No acute facial fractures. Mandible intact. Upper cervical spine in the field of view in tact. Paranasal sinuses, mastoid air cells are clear. Orbital and facial soft tissues are unremarkable. Post cataract surgery bilaterally. Inferior brain parenchyma in the field of view demonstrates atrophy and white matter disease. No acu te findings. This report was discussed with Dr. Norris IMPRESSION: No acute changes
--- NOTE | 2017-05-19 15:39 | RADIOLOGY REPORT (SQ) ---
EXAM DESCRIPTION: CT HEAD WITHOUT COMPLETED DATE/TIME: 05/17/2017 5:11 pm REASON FOR STUDY: Fall injury pain COMPARISON: CT brain 04/12/2017, 06/04/2016, 02/08/2015, 04/29/2013 TECHNIQUE: Noncontrast CT brain was performed, reviewed at bone, subdural, and brain parenchymal [facility]. RADIATION DOSE: 64.2 mGy LIMITATIONS: Mild motion artifact FINDINGS: No CT evidence of acute intracranial hemorrhage, acute large territory ischemic change, ma ss effect, or midline shift. There is prominence of the ventricles and sulci, stable. Moderate bifrontal and biparietal small vessel chronic ischemic change. Posterior fossa structures are unremarkable. Orbits, calvarium, paranasal sinuses, mastoid air cells unremarkable. Report discussed with Dr. Norris IMPRESSION: No acute changes.
== END 2017-05-17 18:34 | disposition home or self-care (01) ==
LOC: ER 16:39
DX: S09.90XA Unspecified injury of head, initial encounter (principal); S40.012A Contusion of left shoulder, initial encounter; W19.XXXA Unspecified fall, initial encounter; I10 Essential (primary) hypertension
CPT/HCPCS: 70450; 70486; 72125; 93005; 93010; 99284

== ENCOUNTER 2017-06-11 05:33 | Emergency (ER) | payer MEDICARE, OTHER ==
--- NOTE | 2017-06-11 07:13 | RADIOLOGY REPORT (SQ) ---
EXAM DESCRIPTION: SHOULDER LEFT 2 OR MORE VIEWS COMPLETED DATE/TIME: 06/11/2017 7:00 am REASON FOR STUDY: pain COMPARISON: Left shoulder x-ray 05/17/2017. NUMBER OF VIEWS: Two views. TECHNIQUE: Neutral and Y-view images acquired of the left shoulder. LIMITATIONS: None. FINDINGS: MINERALIZATION: Osteopenia. BONES: No acute fracture at the proximal left humerus. There is cortical irregularity at the distal clavicle. JOINTS: No dislocation. Degenerative changes at the acromioclavicular joint. VISUALIZED LUNGS AND RIBS: No pneumothorax. No displaced rib fracture. SOFT TISSUES: No radiopaque foreign body. IMPRESSION: Cortical irregularity at the distal left clavicle, may represent a nondisplaced fracture . Please correlate with point tenderness. TECHNICAL DOCUMENTATION: JOB ID: [id number] 2010 [employer]- All Rights Reserved
--- NOTE | 2017-06-11 07:16 | RADIOLOGY REPORT (SQ) ---
EXAM DESCRIPTION: HIP LEFT AP/LATERAL COMPLETED DATE/TIME: 06/11/2017 7:00 am REASON FOR STUDY: pain COMPARISON: Bilateral hip x-ray 02/16/2017. NUMBER OF VIEWS: Two views. TECHNIQUE: AP pelvis and additional frog-leg view of the left hip. LIMITATIONS: None. FINDINGS: There is no acute fracture or dislocation. The pelvic ring is intact. The bilateral hip joints are maintained. Degenerative changes in the visualized lower lumbar spine. Vascular stents a re noted in the midline lower abdomen. Surgical clips at the right inguinal region. IMPRESSION: No radiographic evidence of acute fracture. TECHNICAL DOCUMENTATION: JOB ID: [id number] 2010 [employer]- All Rights Reserved
--- NOTE | 2017-06-11 07:40 | ER Document Report ---
ED General - General Chief Complaint: Fall Injury Stated Complaint: FALL,SIDE PAIN Time Seen by Provider: 06/11/17 06:21 TRAVEL OUTSIDE OF THE [place] IN LAST 30 DAYS: No - HPI Patient complains to provider of: Fall at skilled nursing left shoulder left hip pain Notes: Patient coming in from skilled nursing most of the history is obtained from nursing notes patient apparently fell complaining of left shoulder left hip pain x-rays were ordered for the patient. I evaluated the patient after x-rays were performed patient is confused however this seems to be baseline for the patient. As noted obvious signs of any trauma. He is easily arousable from his sleeping state upon arousing the patient patient complains of no pain in his left shoulder or in his left hip. Otherwise HPI is difficult to obtain - Related Data Allergies/Adverse Reactions: Penicillins Allergy (Verified 05/17/17 17:08) pseudoephedrine HCl [From Sudafed] Allergy (Verified 05/17/17 17:08) sulfadiazine [Sulfadiazine] Allergy (Verified 05/17/17 17:08) Past Medical History - Social History Smoking Status: Unknown if Ever Smoked Chew tobacco use (# tins/day): No Family History: None - Past Medical History Cardiac Medical History: Reports: Hx Heart Attack - 2008, Hx Hypercholesterolemia, Hx Hypertension Pulmonary Medical History: Denies: Hx Asthma Neurological Medical History: Denies: Hx Cerebrovascular Accident, Hx Seizures Renal/ Medical History: Reports: Hx Benign Prostatic Hyperplasia. Denies: Hx Peritoneal Dialysis GI Medical History: Denies: Hx Hepatitis, Hx Hiatal Hernia, Hx Ulcer Psychiatric Medical History: Reports: Hx Dementia Infectious Medical History: Denies: Hx Hepatitis Past Surgical History: Reports: Hx Cholecystectomy. Denies: Hx Open Heart Surgery, Hx Pacemaker - Immunizations Hx Diphtheria, Pertussis, Tetanus Vaccination: No Hx Pneumococcal Vaccination: 06/02/13 Review of Systems - Review of Systems -: Yes ROS unobtainable due to patient's medical condition - Dementia Physical Exam - Vital signs Vitals: Temp Pulse Resp BP Pulse Ox 97.9 F 54 L 14 143/61 H 99 06/11/17 05:35 06/11/17 05:35 06/11/17 05:35 06/11/17 05:35 06/11/17 05:35 Interpretation: Normal - General General appearance: Appears well - HEENT Head: Normocephalic, Atraumatic Eyes: Normal Pupils: PERRL - Respiratory Respiratory status: No respiratory distress Chest status: Nontender Breath sounds: Normal Chest palpation: Normal - Cardiovascular Rhythm: Regular Heart sounds: Normal auscultation Murmur: No - Abdominal Inspection: Normal Distension: No distension Bowel sounds: Normal Tenderness: Nontender Organomegaly: No organomegaly - Back Back: Normal, Nontender - Extremities General upper extremity: Normal inspection, Nontender, Normal color, Normal ROM , Normal temperature, Other - No tenderness to palpation of the left shoulder General lower extremity: Normal inspection, Nontender, Normal color, Normal ROM , Normal temperature, Normal weight bearing, Other - No tenderness to palpation of the left hip. No: Tom's sign - Neurological Neuro grossly intact: Yes - Psychological Associated symptoms: Confused - Skin Skin Temperature: Warm Skin Moisture: Dry Skin Color: Normal Course - Re-evaluation Re-evalutation: 06/11/17 08:06 X-rays read as a cortical irregularity of the clavicle on the left side however patient has no pinpoint tenderness. Believe this probably degenerative changes. No tenderness to palpation of the left hip as well. Otherwise examination shows no signs of significant trauma. Patient was to be safe to return to skilled nursing. - Vital Signs Vital signs: Temp Pulse Resp BP Pulse Ox 97.9 F 54 L 14 143/61 H 99 06/11/17 05:35 06/11/17 05:35 06/11/17 05:35 06/11/17 05:35 06/11/17 05:35 Discharge - Discharge Clinical Impression: Fall at skilled nursing Qualifiers: Encounter type: initial encounter Qualified Code(s): W19.XXXA - Unspecified fall, initial encounter Additional Instructions: Patient was seen and evaluated for his fall. At this time patient has no tenderness is sleeping comfortably. X-rays of his left shoulder and left hip do not show any signs of fracture. Patient will be transported back to the skilled nursing. Please monitor patient create a safe environment to prevent falls. Patient should follow-up with his PCP the next 2-3 days
[2017-06-11 08:36] VITALS: BP 121/47
== END 2017-06-11 08:36 | disposition home or self-care (01) ==
LOC: ER 05:33
DX: M25.512 Pain in left shoulder (principal); M25.552 Pain in left hip; W19.XXXA Unspecified fall, initial encounter; Y92.129 Unspecified place in nursing home as the place of occurrence of the external cause; E78.00 Pure hypercholesterolemia, unspecified; I10 Essential (primary) hypertension; Z88.0 Allergy status to penicillin; Z90.49 Acquired absence of other specified parts of digestive tract; I25.2 Old myocardial infarction
CPT/HCPCS: 99285

== ENCOUNTER 2017-07-05 08:38 | Emergency (ER) | payer MEDICARE, OTHER ==
[2017-07-05] MEDS ORDERED: PANTOPRAZOLE SODIUM 40 MG VIAL IV ONE (09:47)
[2017-07-05 09:50] LABS: ABSOLUTE EOSINOPHILS # (AUTO) 0.1 10^3/uL (0.0-0.6); ABSOLUTE MONOCYTES (AUTO) 0.3 10^3/uL (0.1-1.4); ABSOLUTE NEUT (AUTO) 1.9 10^3/uL (1.7-8.2); BASOPHILS % (AUTO) 0.3 % (0-2); EOSINOPHILS % (AUTO) 1.7 % (0-6); HEMATOCRIT 22.3 % (37.9-51.0); HGB HCT DIFFERENCE -0.7; LYMPHOCYTES % (AUTO) 30.5 % (13-45); MEAN CORPUSCULAR HEMOGLOBIN 26.5 pg (27.0-33.4); MEAN CORPUSCULAR HGB CONC 32.3 g/dL (32.0-36.0); MEAN CORPUSCULAR VOLUME 82 fl (80-97); MONOCYTES % (AUTO) 9.4 % (3-13); RED BLOOD COUNT 2.73 10^6/uL (4.35-5.55); SEGMENTED NEUTROPHILS % (AUTO) 58.1 % (42-78); WHITE BLOOD COUNT 3.4 10^3/uL (4.0-10.5)
[2017-07-05 09:54] LABS: HEMOGLOBIN 7.2 g/dL (13.5-17.0)
[2017-07-05 09:55] LABS: PROTHROMBIN TIME 13.7 SEC (11.4-15.4)
[2017-07-05 09:56] LABS: PARTIAL THROMBOPLASTIN TIME 35.5 SEC (23.5-35.8)
[2017-07-05] MEDS ORDERED: NORMAL SALINE 250 ML IV PRN ×2 (09:56)
[2017-07-05 10:19] LABS: ALANINE AMINOTRANSFERASE 19 U/L (21-72); ALBUMIN 3.3 g/dL (3.5-5.0); ALKALINE PHOSPHATASE 101 U/L (38-126); ANION GAP 8 (5-19); ASPARTATE AMINO TRANSFERASE 22 U/L (17-59); BILIRUBIN,DIRECT 0.4 mg/dL (0.0-0.4); BILIRUBIN,TOTAL 0.5 mg/dL (0.2-1.3); BLOOD UREA NITROGEN 23 mg/dL (7-20); CARBON DIOXIDE 32 mmol/L (22-30); CHLORIDE 101 mmol/L (98-107); CREATININE RESULT 1.38 mg/dL (0.52-1.25); GLUCOSE 120 mg/dL (75-110); LIPASE 205.4 U/L (23-300); SODIUM 141.2 mmol/L (137-145); TOTAL PROTEIN 7.3 g/dL (6.3-8.2)
--- NOTE | 2017-07-05 11:13 | RADIOLOGY REPORT (SQ) ---
EXAM DESCRIPTION: CTA ABDOMEN/PELVIS W WO COMPLETED DATE/TIME: 07/05/2017 10:32 am REASON FOR STUDY: low h/h hx of AAA abd pain COMPARISON: None. TECHNIQUE: CT scan of the abdominal aorta extending to the iliac bifurcation performed with and with out intravenous contrast using helical scanning technique with dynamic intravenous contrast injection . Images reviewed with lung, soft tissue, and bone windows. Reconstructed coronal and sagittal MPR im ages reviewed. All images stored on PACS. Advanced 3D imaging as volume rendering, MIPS, SSD performed? yes All CT scanners at this facility use dose modulation, iterative reconstruction, and/or weight based d osing when appropriate to reduce radiation dose to as low as reasonably achievable (ALARA). [facility]: Dose Right [facility]: CareDose [facility]: Dose Right [facility]: Teradose 4D [facility]: [employer] CONTRAST TYPE AND DOSE: contrast/concentration: Isovue 370.00 mg/ml; Total Contrast Delivered: 100.0 ml; Total Saline Delivered: 75.0 ml RENAL FUNCTION: Creatinine 1.4 LIMITATIONS: None. FINDINGS: AORTA AND VESSELS: Status post endovascular repair of aortic aneurysm. Along the inferior stent graft, there is endoleak. This is not contained within the lower sac, however, but rather susi ears to extravasates outside the confines of the aneurysm sac with variable density retroperitoneal h ematoma along the lower aorta within the upper pelvis and along the left iliopsoas. Hematoma likely measures up to almost 10 cm transverse dimension. Heavily calcified but patent superior mesenteric a nd celiac axis arteries. Patent renal arteries bilaterally. LUNG BASES: No significant findings. No nodules or infiltrates. SOLID ORGANS AND BILIARY TREE: No gross liver or spleen or pancreas lesions. Diminished enhancement in the left kidney suggests renal arterial compromise there is left hydronephrosis with dilatation o f the left ureter to the level of the retroperitoneal hematoma, which appears to be obstructing. No biliary obstruction. Post cholecystectomy. Normal right renal enhancement. BOWEL AND PERITONEAL CAVITY: No masses or inflammatory changes. No free fluid or peritoneal masses. APPENDIX: Normal. ABDOMINAL WALL: No masses. No hernias. BONY STRUCTURES: Osteopenic. Chronic slightly progressive T12 compression deformity. Spondylosis ot herwise. 3-D IMAGING: Confirms the above findings. OTHER: No other significant finding. IMPRESSION: 1. Previous aortic aneurysm status post endovascular repair. There is a leak which is not confined to the aneurysm sac, but rather is associated with a large retroperitoneal hematoma. As sociated left renal obstruction. Obstruction may explain diminished renal enhancement on the left (v ersus renal arterial compromise). Pertinent positive or negative findings of the imaging study reported as a CRITICAL EXAM to DEBO HUGHES DO at11:01 on 07/05/2017. Category of Critical Exam: Leaking abdominal aortic aneurysm. TECHNICAL DOCUMENTATION: JOB ID: [id number] Quality ID # [id number]: Final reports with documentation of one or more dose reduction techniques (e.g., Au tomated exposure control, adjustment of the mA and/or kV according to patient size, use of iterative reconstruction technique) 2010 [employer]- All Rights Reserved
--- NOTE | 2017-07-05 12:01 | ER Document Report ---
ED General - General Chief Complaint: Abnormal Lab Results Stated Complaint: ABNORMAL LABS Time Seen by Provider: 07/05/17 08:46 TRAVEL OUTSIDE OF THE [place] IN LAST 30 DAYS: No - HPI Patient complains to provider of: Low hemoglobin Notes: Patient coming in for evaluation of low hemoglobin. Patient coming in from [facility]. Patient does have DNR paperwork at bedside. According to EMS called to the correction as abnormal routine labs performed showing hemoglobin 6.9 patient was transported to ER for further evaluation. Otherwise no other history was given. Patient is alert however not oriented. Patient states he has no other complaints. Patient looks slightly disheveled and pale. Reviewed patient's past visits to the patient has history of AAA. Normal hemoglobin looks to be around 9-10. - Related Data Allergies/Adverse Reactions: Penicillins Allergy (Verified 05/17/17 17:08) pseudoephedrine HCl [From Sudafed] Allergy (Verified 05/17/17 17:08) sulfadiazine [Sulfadiazine] Allergy (Verified 05/17/17 17:08) Past Medical History - Social History Smoking Status: Unknown if Ever Smoked Frequency of alcohol use: None Drug Abuse: None Family History: None - Past Medical History Cardiac Medical History: Reports: Hx Heart Attack - 2009, Hx Hypercholesterolemia, Hx Hypertension Pulmonary Medical History: Denies: Hx Asthma Neurological Medical History: Denies: Hx Cerebrovascular Accident, Hx Seizures Renal/ Medical History: Reports: Hx Benign Prostatic Hyperplasia. Denies: Hx Peritoneal Dialysis GI Medical History: Denies: Hx Hepatitis, Hx Hiatal Hernia, Hx Ulcer Psychiatric Medical History: Reports: Hx Dementia Infectious Medical History: Denies: Hx Hepatitis Past Surgical History: Reports: Hx Cholecystectomy. Denies: Hx Open Heart Surgery, Hx Pacemaker - Immunizations Hx Diphtheria, Pertussis, Tetanus Vaccination: No Hx Pneumococcal Vaccination: 06/02/13 Review of Systems - Review of Systems Notes: Dementia Physical Exam - Vital signs Vitals: Resp 14 07/05/17 09:00 Interpretation: Normal - General General appearance: Appears well, Alert - HEENT Head: Normocephalic, Atraumatic Eyes: Normal Pupils: PERRL - Respiratory Respiratory status: No respiratory distress Chest status: Nontender Breath sounds: Normal Chest palpation: Normal - Cardiovascular Rhythm: Regular Heart sounds: Normal auscultation Murmur: No - Abdominal Inspection: Normal Distension: No distension Bowel sounds: Normal Tenderness: Tender - Diffuse tenderness throughout palpation of the abdomen. Organomegaly: No organomegaly - Rectal Notes: Light brown stool - Back Back: Normal, Nontender - Extremities General upper extremity: Normal inspection, Nontender, Normal color, Normal ROM , Normal temperature General lower extremity: Normal inspection, Nontender, Normal color, Normal ROM , Normal temperature, Normal weight bearing. No: Tom's sign - Neurological Neuro grossly intact: Yes Cognition: Confused Henderson Coma Scale Eye Opening: Spontaneous Abhishek Coma Scale Verbal: Oriented Abhishek Coma Scale Motor: Obeys Commands Abhishek Coma Scale Total: 15 Motor strength normal: LUE, RUE, LLE, RLE Sensory: Normal - Psychological Associated symptoms: Normal affect, Normal mood - Skin Skin Temperature: Warm Skin Moisture: Dry Skin Color: Normal Course - Re-evaluation Re-evalutation: 07/05/17 11:56 Patient initially arrived today for evaluation of anemia found on outpatient laboratory studies from his [facility] facility. Patient did arrive a DNR paperwork. On examination patient's abdomen was quite tender review of previous visits that patient has a AAA repair with endograft also history of constipation due to the tenderness of the abdomen and anemia when I have performed a CTA of the abdomen and pelvis which did show a endograft leak with a large retroperitoneal hematoma. Did discuss with family members who stated that they would like him to be evaluated for the endoleak. Did discuss with operating surgeon at [facility]. Requested that the patient be transferred ER to ER. Request this be performed in less than 6 hours decision was made that the next available way to transfer the patient will be by air. I will contact the family members to update them with this decision. 07/05/17 12:01 Updated family members of decision will transfer patient via air. 07/05/17 12:32 Patient currently waiting air transport which has arrived patient is stable for transport - Vital Signs Vital signs: Temp Pulse Resp BP Pulse Ox 97.8 F 57 L 19 130/89 H 99 07/05/17 12:37 07/05/17 12:37 07/05/17 12:37 07/05/17 12:37 07/05/17 12:37 - Laboratory Result Diagrams: 07/05/17 09:24 07/05/17 09:24 Laboratory results interpreted by me: 07/05/17 07/05/17 07/05/17 09:24 09:24 09:24 WBC 3.4 L RBC 2.73 L Hgb 7.2 L Hct 22.3 L MCH 26.5 L RDW 17.0 H Carbon Dioxide 32 H BUN 23 H Creatinine 1.38 H Est GFR ( Amer) 59 L Est GFR (Non-Af Amer) 49 L Glucose 120 H ALT 19 L Albumin 3.3 L Crossmatch See Detail Critical Care Note - Critical Care Note Total time excluding time spent on procedures (mins): 85 Comments: Time spent multiple evaluations multiple discussions with consulting physicians transferring physicians and family members Discharge - Discharge Clinical Impression: AAA endograf leak, Anemia requiring transfusions GI bleed Qualifiers: GI bleed type/associated pathology: unspecified gastrointestinal hemorrhage type Qualified Code(s): K92.2 - Gastrointestinal hemorrhage, unspecified Dementia Qualifiers: Dementia type: unspecified type Dementia behavioral disturbance: without behavioral disturbance Qualified Code(s): F03.90 - Unspecified dementia without behavioral disturbance Condition: Poor Disposition: [facility] Referrals: ISH SONG PA-C [Primary Care Provider] - Follow up as needed
[2017-07-05 12:44] VITALS: BP 130/89
== END 2017-07-05 12:45 | disposition short-term general hospital (02) ==
LOC: ER 08:38
DX: T82.338A Leakage of other vascular grafts, initial encounter (principal); Y83.2 Surgical operation with anastomosis, bypass or graft as the cause of abnormal reaction of the patient, or of later complication, without mention of misadventure at the time of the procedure; D64.9 Anemia, unspecified; K66.1 Hemoperitoneum; R10.817 Generalized abdominal tenderness; I10 Essential (primary) hypertension; I25.2 Old myocardial infarction; F03.90 Unspecified dementia, unspecified severity, without behavioral disturbance, psychotic disturbance, mood disturbance, and anxiety; Z66 Do not resuscitate; Z88.0 Allergy status to penicillin; Z88.8 Allergy status to other drugs, medicaments and biological substances
CPT/HCPCS: 99291; 99292; 96374; 86900; 86901; 36415; 36430; 86850; 83605; 83690; 85025; 85610; 85730; 82272; 80053; 86920; 74174; P9016; C9113; S0164